=== PATIENT | female | born 1965 | race Caucasian/White ===

== ENCOUNTER 2017-03-20 11:06 | Emergency (ER) | payer OTHER ==
[2017-03-20 11:35] VITALS: BP 127/69
--- NOTE | 2017-03-20 12:32 | UC ---
FLU HPI - HPI Summary HPI Summary: 51 y/o female with h/o cough, nasal drainage, sinus fullness, increasing SOB and headache since sunday. has h/o asthma, migraines, headache different than migraines, located frontal. ear fullness, no pain. + throat pain. + fever tactile intermittent x few days. patient under increased stress due to spouse sickness. has h/o asthma, no inhaler currently, has chronic bronchitis, COPD due to smoke exposure as child, no current TOB use. - History of Current Complaint Chief Complaint: UCRespiratory Stated Complaint: SORE THROAT RUNNY NOSE CONGESTION Time Seen by Provider: 03/20/17 12:14 Hx Obtained From: Patient Hx Last Menstrual Period: n/a ?: No Onset/Duration: Gradual Onset, Lasting Days Severity Currently: Moderate Severity Initially: Moderate - Allergy/Home Medications Allergies/Adverse Reactions: Allergies Allergy/AdvReac Type Severity Reaction Status Date / Time Sulfa Antibiotics Allergy Hives Verified 03/20/17 11:35 Home Medications: Home Medications Esomeprazole Magnesium [Nexium 24Hr] 20 mg PO DAILY 03/20/17 [History Confirmed 03/20/17] Levothyroxine TAB* [Synthroid TAB*] 50 mcg PO DAILY 03/20/17 [History Confirmed 03/20/17] Metaxalone TAB* [Skelaxin TAB*] 800 mg PO DAILY 03/20/17 [History Confirmed 03/27] Topiramate [Topamax 100 mg tab] 100 mg PO BID 03/20/17 [History Confirmed ] celeCOXIB CAP* [Celebrex CAP*] 100 mg PO DAILY 03/20/17 [History Confirmed 03/20] PMH/Surg Hx/FS Hx/Imm Hx Previously Healthy: No - asthma, migraines - Surgical History Surgical History: None - Social History Alcohol Use: Rare Substance Use Type: None Smoking Status (MU): Never Smoked Tobacco - Immunization History Most Recent Influenza Vaccination: no 2017 Review of Systems Constitutional: Fever, Chills, Fatigue ENT: Sore Throat, Nasal Discharge, Sinus Congestion, Sinus Pain/Tenderness Respiratory: Shortness Of Breath, Cough Is Patient Immunocompromised?: No All Other Systems Reviewed And Are Negative: Yes Physical Exam Triage Information Reviewed: Yes Appearance: Well-Appearing, No Pain Distress, Ill-Appearing - mild Vital Signs: Initial Vital Signs Temp 99.1 F 10/10/17 11:30 Pulse 79 03/20/17 11:30 Resp 18 03/20/17 11:30 BP 127/69 03/20/17 11:30 Pulse Ox 99 03/20/17 11:30 Vital Signs Reviewed: Yes Eyes: Positive: Conjunctiva Clear ENT: Positive: Hearing grossly normal, Pharyngeal erythema - mild, Nasal congestion, TMs normal, Tonsillar exudate - minimal b/l, Other: - + tenderness to percussion frontal, max sinuses Neck: Positive: Supple, Nontender, Enlarged Nodes @ - sub mandibular, minimal b/ l + mild tenderness Respiratory: Positive: Chest non-tender, Lungs clear, Normal breath sounds - diminished b/l, No respiratory distress, No accessory muscle use Cardiovascular: Positive: RRR, No Murmur Neurological Exam: Normal Psychological Exam: Normal Flu Course/Dx - Course Course Of Treatment: sinusitis in setting of COPD/ chronic bronchitis. ABX, inhaler given, follow up with PCP - Differential Dx/Diagnosis Differential Diagnosis/HQI/PQRI: Bronchitis, Broncholiolitis, Pneumonia, RSV, Upper Respiratory Infection Provider Diagnoses: sinusitis Discharge - Discharge Plan Condition: Good Disposition: HOME Prescriptions: Albuterol HFA INHALER* [Ventolin HFA Inhaler*] 1 puff INH Q4H PRN #1 mdi PRN Reason: shortness of breaht Azithromycin TAB* [Zithromax TAB (Z-SANCHO) 250 mg #6 tabs] 2 tab PO .TODAY, THEN 1 DAILY #1 sancho Patient Education Materials: Sinusitis (ED) Referrals: Haris Jay MD [Primary Care Provider] - Additional Instructions: - Follow up with primary within 2 days if no decrease in symptoms - Increase fluid intake and rest - Albuterol inhaler as needed for shortness of breath - Z-pac as directed - REturn with increased fever, chills, shortness of breath - Motrin/ Tylenol as needed for pain/ fever
== END 2017-03-20 12:35 | disposition home or self-care (01) ==
LOC: UCCORT 11:06
DX: J32.9 Chronic sinusitis, unspecified (principal); Z88.1 Allergy status to other antibiotic agents; Z88.2 Allergy status to sulfonamides
CPT/HCPCS: 99212; G0463

== ENCOUNTER → 2017-12-23 11:05 | Emergency (ER) | payer OTHER ==
--- NOTE | 2017-12-23 11:44 | UC ---
Complaint Female HPI - HPI Summary HPI Summary: 2 DAYS OF INCREASED URGENCY, BURNING AND FREQUENCY OF UNRINATION, she self treated a vaginitis this past week with over the counter anti fungal. Hx of IBS , states she had a small BM - History Of Current Complaint Stated Complaint: URINARY COMPLAINT Time Seen by Provider: 12/23/17 11:31 Hx Obtained From: Patient Hx Last Menstrual Period: n/a ?: No Onset/Duration: Sudden Onset, Lasting Days Timing: Lasting Days Severity Initially: Mild Severity Currently: Moderate Character: Burning Aggravating Factor(s): Urination - Allergies/Home Medications Allergies/Adverse Reactions: Allergies Allergy/AdvReac Type Severity Reaction Status Date / Time Sulfa (Sulfonamide Allergy Hives Verified 12/23/17 11:59 Antibiotics) Home Medications: Home Medications Albuterol HFA INHALER* [Ventolin HFA Inhaler*] 1 puff INH Q4H PRN 12/23/17 [ History Confirmed 12/23/17] PMH/Surg Hx/FS Hx/Imm Hx Previously Healthy: Yes - Surgical History Surgical History: None - Family History Known Family History: Positive: Hypertension - Social History Alcohol Use: Rare Substance Use Type: None Smoking Status (MU): Never Smoked Tobacco - Immunization History Most Recent Influenza Vaccination: no 2016 Review of Systems Constitutional: Negative Skin: Negative Eyes: Negative ENT: Negative Respiratory: Negative Cardiovascular: Negative Genitourinary: Dysuria, Frequency, Urgency Complaint Female Dx - Course Course Of Treatment: HX OBTAINED, EXAM PERFORMED ,MEDS REVIEWED, UA OBTAINED - Differential Dx/Diagnosis Differential Diagnosis/HQI/PQRI: Urinary Tract Infection Discharge - Discharge Plan Prescriptions: Ciprofloxacin TAB* [Cipro 250 MG Tab*] 250 mg PO BID #6 tab Fluconazole [Diflucan 150 MG (NF)] 150 mg PO ONCE #1 tab Referrals: No Primary Care Phys,NOPCP [Primary Care Provider] -
[2017-12-23 11:58] VITALS: BP 120/60
== END | disposition home or self-care (01) ==
LOC: UCCORT 11:05
DX: R35.0 Frequency of micturition (principal); R30.0 Dysuria; R39.15 Urgency of urination; Z88.2 Allergy status to sulfonamides; K58.9 Irritable bowel syndrome, unspecified
CPT/HCPCS: 81003; 87086; 99212; G0463